=== PATIENT | female | born 1970 | race Caucasian/White ===

== ENCOUNTER 2016-09-01 21:57 | Emergency (ER) | payer BC, OTHER ==
[2016-09-01 22:08] VITALS: RESP 18
--- NOTE | 2016-09-01 22:39 | ED ---
Female Urogenital HPI - General Chief complaint: Urogenital Stated complaint: Female Time Seen by Provider: 09/01/16 22:10 Source: patient, RN notes reviewed, old records reviewed Mode of arrival: ambulatory Limitations: no limitations - History of Present Illness Initial comments: Patient is a 46-year-old female with chief complaint of lower pelvic pain for the past 4 days. Patient reports that urinary tract infection. She reports that she called her primary care provider today because she is continuing to have some pelvic pain and discomfort with urination. She states that when they called the or primary care provider they stated that she does not have a tree urinary tract infection as the culture did not grow any bacteria. Patient states that she is concerned that her IUD may be out of place causing her the pain and pressure. She states that she feels as if she needs to crunch up in a ball in order to be comfortable. She denies any fever or chills or back pain. She denies any specific abdominal pain. She states the lower pelvic pressure and dysuria. She reports that she did have some relief with the Pyridium.Patient denies any recent fever, chills, shortness of breath, chest pain, back pain, abdominal pain, nausea vomiting, numbness or tingling, constipation or diarrhea, headaches or visual changes, or any other current symptoms - Related Data Home Medications Medication Instructions Recorded Confirmed DULoxetine HCL [Cymbalta] 60 mg PO HS 09/01/16 09/01/16 Phenazopyridine [Pyridium] 200 mg PO TID 09/01/16 09/01/16 Sulfamethox-Tmp 800-160Mg [Bactrim 1 tab PO Q12HR 09/01/16 09/01/16 DS 800-160 mg] Previous Rx's Medication Instructions Recorded Acetaminophen-Codeine 300-30mg 1 tab PO Q8H PRN #10 tablet 09/02/16 [Tylenol #3] Allergies Allergy/AdvReac Type Severity Reaction Status Date / Time No Known Allergies Allergy Verified 09/01/16 22:41 Review of Systems ROS Statement: Those systems with pertinent positive or pertinent negative responses have been documented in the HPI. ROS Other: All systems not noted in ROS Statement are negative. Past Medical History Past Medical History: No Reported History History of Any Multi-Drug Resistant Organisms: None Reported Past Surgical History: Section Past Psychological History: No Psychological Hx Reported Smoking Status: Never smoker Past Alcohol Use History: None Reported Past Drug Use History: None Reported General Exam Limitations: no limitations General appearance: alert, in no apparent distress Head exam: Present: atraumatic, normocephalic, normal inspection Eye exam: Present: normal appearance, PERRL, EOMI. Absent: scleral icterus, conjunctival injection, periorbital swelling ENT exam: Present: normal exam, normal oropharynx, mucous membranes moist Neck exam: Present: normal inspection. Absent: tenderness, meningismus, lymphadenopathy Respiratory exam: Present: normal lung sounds bilaterally. Absent: respiratory distress, wheezes, rales, rhonchi, stridor Cardiovascular Exam: Present: regular rate, normal rhythm, normal heart sounds. Absent: systolic murmur, diastolic murmur, rubs, gallop, clicks GI/Abdominal exam: Present: soft, tenderness (Mild suprapubic tenderness.), normal bowel sounds. Absent: distended, guarding, rebound, rigid External exam: Present: normal external exam Speculum exam: Present: normal speculum exam, other (unable to visualize IUD or strings) By manual exam: Present: normal by manual exam. Absent: cervical motion tenderness, adnexal tenderness, adnexal mass Extremities exam: Present: normal inspection, full ROM, normal capillary refill. Absent: tenderness, pedal edema, joint swelling, calf tenderness Back exam: Present: normal inspection Neurological exam: Present: alert, oriented X3, CN II-XII intact Psychiatric exam: Present: normal affect, normal mood Skin exam: Present: warm, dry, intact, normal color. Absent: rash Course Vital Signs 09/01/16 09/02/16 22:06 00:41 Temperature 98.1 F 97.7 F Pulse Rate 100 88 Respiratory 18 18 Rate Blood Pressure 131/83 129/67 O2 Sat by Pulse 98 97 Oximetry Medical Decision Making - Medical Decision Making Pleasant 46-year-old female. Patient is reporting 4 days of lower pelvic pain. She is concerned her IUD may be in out of place. Patient urinalysis and pelvic exam completed. Urinalysis showed elevated nitrate, no other signs of infection. Culture obtained. IUD not visualized on pelvic exam. Transvaginal US shows IUD in lower uterine pelvis. Patient reports she is continuing to have the lower pelvic discomfort. Patient will be given a few tylenol 3, and advised to follow up with OBGYN Dr. Gabriel. Patient agrees with treatment plan and will comply. REturn parameters discussed. - Lab Data Lab Results 09/01/16 09/01/16 09/01/16 Range/Units 22:40 22:40 23:20 Urine Color Dark Brown Urine Appearance Clear (Clear) Urine pH 6.0 (5.0-8.0) Ur Specific [place] 1.017 (1.001-1.035) Urine Protein Negative (Negative) Urine Glucose (UA) Negative (Negative) Urine Ketones Negative (Negative) Urine Blood Negative (Negative) Urine Nitrite Positive H (Negative) Urine Bilirubin 1+ H (Negative) Urine Urobilinogen 2.0 (<2.0) mg/dL Ur Leukocyte Esterase Small H (Negative) Urine RBC 2 (0-5) /hpf Urine WBC 4 (0-5) /hpf Ur Squamous Epith Cells <1 (0-4) /hpf Hyaline Casts 1 (0-2) /lpf Urine Mucus Rare H (None) /hpf Urine HCG, Qual Not Detected (Not Detectd) Trichomonas Ag (Rapid) Negative (Negative) - Radiology Data Radiology results: report reviewed IUD within the lower uterine segment. 0.4 cm shadowing calcification in the right adnexal region with hypoechoic tubular structure possibly resenting a ureteral stone. Correlate with symptoms and urinalysis. Clinically indicated CT renal stone protocol may be helpful for further evaluation. Nonvisualized ovaries. Disposition Clinical Impression: Pelvic pain Disposition: HOME SELF-CARE Condition: Good Instructions: Pelvic Pain in Women (ED) Additional Instructions: Patient is asked to follow-up with [facility]. IUD is in place could be causing some mild discomfort. Discussed possibility of chronic bladder pain. Return to the emergency department if any alarming signs or symptoms occur. Prescriptions: Acetaminophen-Codeine 300-30mg [Tylenol #3] 1 tab PO Q8H PRN #10 tablet PRN Reason: Pain Referrals: Dimple Shay DO [Primary Care Provider] - 1-2 days Claudia De La Vega MD [STAFF PHYSICIAN] - 1-2 days Time of Disposition: 00:19
[2016-09-01 22:51] LABS: Appearance,Urine Clear (Clear); Bilirubin,Urine 1+ (Negative); Glucose,Urine (UA) Negative (Negative); Ketones,Urine Negative (Negative); Leukocyte Esterase,Urine Small (Negative); Mucus,Urine Rare /hpf; Nitrite,Urine Positive (Negative); Particle Count 2953; Protein,Urine Negative (Negative); RBC,Urine 2 /hpf (0-5); Specific Gravity,Urine 1.017 (1.001-1.035); Squamous Epithelial Cell,Urine <1 /hpf (0-4); UA Billing (MACRO vs. MICRO) MICRO; WBC,Urine 4 /hpf (0-5)
--- NOTE | 2016-09-02 00:09 | US ---
EXAM: US PELVIC/ENDOVAG INDICATION: 46-year-old female with pelvic pressure and discomfort over the past 5 days. TECHNIQUE: Real-time sonographic evaluation of the pelvis is performed in transverse and longitudinal projections using endovaginal technique. COMPARISON: 01/06/2015. FINDINGS: The uterus is normal in size and position, it measures 8.0 x 3. 4 x 4.0 centimeters. An IUD is present within the lower uterine segment. The endometrium is normal in thickness measuring 0.4 cm. In the right adnexal region, there is a 0.4 cm shadowing calcification present within a hypoechoic tubular structure possibly representing a ureteral stone. The ovaries are not visualized. No complex adnexal mass lesions are otherwise seen. No free fluid is present. IMPRESSION: 1. IUD within the lower uterine segment. 2. 0.4 cm shadowing calcification present in the right adnexal region within a hypoechoic tubular structure, possibly representing a ureteral stone. Correlate with symptoms and urinalysis. If clinically indicated, CT renal stone protocol may be helpful for further evaluation. 3. Nonvisualized ovaries.
[2016-09-02] MEDS ORDERED: ACET/COD 300 MG/30 MG STARTER PACK 6 TAB BTL PO STA (00:27)
[2016-09-02 00:42] VITALS: BP 129/67; PULSE 88; TEMP 97.7
== END 2016-09-02 00:42 | disposition home or self-care (01) ==
LOC: EC 21:57
DX: R10.2 Pelvic and perineal pain (principal); Z79.899 Other long term (current) drug therapy
CPT/HCPCS: 76830; 81001; 81025; 87070; 87086; 87205; 87491; 87591; 87808; 99284

== ENCOUNTER → 2017-03-28 | Outpatient (CLI) | payer BC ==
--- NOTE | 2017-03-30 11:00 | MM ---
Reason for exam: screening (asymptomatic). Last mammogram was performed 2 years and 8 months ago. History: Patient had first child at age 39. Family history of breast cancer in grandmother at age 45. Physical Findings: A clinical breast exam by your physician is recommended on an annual basis and results should be correlated with mammographic findings. MG Screening Mammo w CAD Bilateral CC and MLO view(s) were taken. Prior study comparison: July 20, 2014, bilateral MG screening mammo w CAD. March 2009, mammogram, performed at [facility]. There are scattered fibroglandular densities. No significant changes when compared with prior studies. ASSESSMENT: Negative, BI-RAD 1 RECOMMENDATION: Routine screening mammogram of both breasts in 1 year.
== END | disposition home or self-care (01) ==
LOC: RADMAMWWP 09:14
PROVIDERS: ATTEND Obstetrics & Gynecology
DX: Z12.31 Encounter for screening mammogram for malignant neoplasm of breast (principal); Z80.3 Family history of malignant neoplasm of breast

== ENCOUNTER → 2018-12-25 | Outpatient (CLI) | payer OTHER ==
--- NOTE | 2018-12-26 13:52 | MM ---
Reason for exam: screening (asymptomatic). Last mammogram was performed 1 year and 9 months ago. History: Patient had first child at age 39. Family history of breast cancer in grandmother at age 45. Physical Findings: A clinical breast exam by your physician is recommended on an annual basis and results should be correlated with mammographic findings. MG 3D Screening Mammo W/Cad Bilateral CC and MLO view(s) were taken. Prior study comparison: March 28, 2017, bilateral MG screening mammo w CAD. July 20, 2014, bilateral MG screening mammo w CAD. There are scattered fibroglandular densities. Benign appearing bilateral calcifications. No significant changes when compared with prior studies. ASSESSMENT: Benign, BI-RAD 2 RECOMMENDATION: Routine screening mammogram of both breasts in 1 year.
== END | disposition home or self-care (01) ==
LOC: RADMAMWWP 07:28
PROVIDERS: ATTEND Family Medicine
DX: Z12.31 Encounter for screening mammogram for malignant neoplasm of breast (principal)
CPT/HCPCS: 77063; 77067

== ENCOUNTER → 2020-01-13 | Outpatient (CLI) | payer OTHER ==
--- NOTE | 2020-01-14 09:29 | MM ---
Reason for exam: screening (asymptomatic). Last mammogram was performed 1 year and 1 month ago. History: Patient had first child at age 39. Family history of breast cancer in grandmother at age 45. Physical Findings: A clinical breast exam by your physician is recommended on an annual basis and results should be correlated with mammographic findings. MG 3D Screening Mammo W/Cad Bilateral CC and MLO view(s) were taken. Prior study comparison: December 25, 2018, bilateral MG 3d screening mammo w/cad. March 28, 2017, bilateral MG screening mammo w CAD. There are scattered fibroglandular densities. There is no discrete abnormality. No significant changes when compared with prior studies. ASSESSMENT: Negative, BI-RAD 1 RECOMMENDATION: Routine screening mammogram of both breasts in 1 year.
== END | disposition home or self-care (01) ==
LOC: RADMAMWWP 07:46
PROVIDERS: ATTEND Family Medicine
DX: Z12.31 Encounter for screening mammogram for malignant neoplasm of breast (principal)
CPT/HCPCS: 77063; 77067

== ENCOUNTER → 2020-03-16 | Outpatient (CLI) | payer OTHER ==
[2020-03-16 13:39] VITALS: BP 138/87; PULSE 70; TEMP 98.4; BMI 39.1
--- NOTE | 2020-03-16 14:24 | P.HPBAR ---
Bariatric H&P - History & Physicial H&P Date: 03/16/20 History & Physicial: Visit/CC: initial clinic visit Patient initial contact: Initial weight: Initial weight in pounds: Height: 5 ft 3 in Initial BMI: Last weight: Current weight: 100.244 kg Current weight in pounds: 221.00 Current BMI: 39.1 [place] body weight (based on NIH guidelines): 52.163 kg Excess body weight loss: The patient is a 49 year-old F who presents for Bariatric Assessment. Patient here today with complaints of morbid obesity. She states she has tried a variety of different weight loss methods over the years. She had really good success with [employer] approximately 6 years ago however one starting that program recently she gained weight. Denies tobacco use. BMI 39. Patient with medical history significant for obstructive sleep apnea, hypercholesterolemia, depression, PCO S, prediabetes. No dysphagia or history of DVT. Surgical history includes pilonidal cyst colonoscopy. Patient is required to have a 6 month supervised weight loss program. States she does struggle with di arrhea after her protein shakes. Review of Systems The patient denies any acute changes in vision or hearing, no dysphagia or odynophagia, no chest pain or shortness of breath, no dysuria or hematuria, no headache, no runny nose, no rectal bleeding or melena, no unexplained weight loss Past Medical History Past Medical History: No Reported History History of Any Multi-Drug Resistant Organisms: None Reported Past Surgical History: Section Past Anesthesia/Blood Transfusion Reactions: No Reported Reaction Past Psychological History: No Psychological Hx Reported Smoking Status: Never smoker Past Alcohol Use History: None Reported Past Drug Use History: None Reported Surgical - Exam Vital Signs Temp Pulse BP 98.4 F 70 138/87 03/16/20 13:30 03/16/20 13:30 03/16/20 13:30 Physical exam: General: Well-developed, well-nourished HEENT: Normocephalic, sclerae nonicteric Abdomen: Nontender, nondistended Extremities: No edema Neuro: Alert and oriented Bariatric Assessment & Plan (1) Morbid obesity Narrative/Plan: 49-year-old female with chronic history of obesity. Patient with comorbidities as well. Options reviewed again with the patient. She was seen at our seminar 1-2 months ago. She is interested in sleeve gastrectomy. Surgical options and their risks and benefits again discussed in detail. Will plan EGD 3 months. Follow-up in the office following that. Status: Acute Bariatric Checklist Checklist: Plan: Checklist: EGD: 1. Hiatal hernia: 2. H. Pylori: HgbA1c: Vitamin D: Smoking: Never smoker Primary care physician referral: Psychiatry clearance: Cardiology clearance: Sleep study: Diet journal: VTE risk score: VTE risk level: Rehab needs at discharge:
== END | disposition home or self-care (01) ==
LOC: BARWHC3 12:50
PROVIDERS: ATTEND Surgery
DX: E66.01 Morbid (severe) obesity due to excess calories (principal); Z68.39 Body mass index [BMI] 39.0-39.9, adult
CPT/HCPCS: 99211

== ENCOUNTER 2020-11-10 20:50 | Emergency (ER) | payer OTHER ==
[2020-11-10 20:58] VITALS: TEMP 97.9
[2020-11-10] MEDS ORDERED: diphenhydrAMINE 50 MG/ML 1 ML VIAL IVP STA (22:24)
[2020-11-10] MEDS ORDERED: ONDANSETRON 4 MG/2 ML VIAL IVP STA (22:24)
[2020-11-10] MEDS ORDERED: PROCHLORPERAZINE INJ 10 MG/2 ML VIAL IVP STA (22:24)
[2020-11-10] MEDS ORDERED: SODIUM CHLORIDE 0.9% 1,000 ML IV STA ×2 (22:24)
--- NOTE | 2020-11-10 22:25 | ED ---
Headache HPI - General Chief Complaint: Headache Stated Complaint: Head pain,nausea,weakness Time Seen by Provider: 11/10/20 21:17 Source: RN notes reviewed, old records reviewed Mode of arrival: wheelchair Limitations: no limitations - History of Present Illness Initial Comments: Is a 42-year-old female DF for evaluation patient Dese for evaluation of right eye pain. No vision changes. His pressure. With headache migraine headache and history of migraines. No nausea vomiting diarrhea or fevers. Patient states she feels like she does 20 2. with the onset of this headache. She didn't shower symptoms mildly improved but have not resolved headache is persistent headache is pressure behind her right eye currently. Which is little different than her most, migraines MD Complaint: headache, "migraine" -: days(s) Onset Description: sudden Location: right, retro-orbital Severity scale (1-10): 4 Quality: pulsatile, intermittent Consistency: constant Improves With: nothing Worsens With: none Associated Symptoms: photophobia, sensitivity to sound, other (No vision changes) Treatments Prior to Arrival: none - Related Data Home Medications Medication Instructions Recorded Confirmed DULoxetine HCL [Cymbalta] 60 mg PO HS 09/01/16 09/01/16 Naproxen [Naprosyn] 500 mg PO BID 03/16/20 03/16/20 Vitamin B Complex 1 cap PO DAILY 03/16/20 03/16/20 Previous Rx's Medication Instructions Recorded Amoxic-Pot Clav 875-125Mg 1 tab PO Q12HR #20 tablet 11/10/20 [Augmentin 875-125] Allergies Allergy/AdvReac Type Severity Reaction Status Date / Time No Known Allergies Allergy Verified 11/10/20 20:58 Review of Systems ROS Statement: Those systems with pertinent positive or pertinent negative responses have been documented in the HPI. ROS Other: All systems not noted in ROS Statement are negative. Past Medical History Past Medical History: Sleep Apnea/CPAP/BIPAP Additional Past Medical History / Comment(s): PCOS History of Any Multi-Drug Resistant Organisms: None Reported Past Surgical History: Section Past Anesthesia/Blood Transfusion Reactions: No Reported Reaction Past Psychological History: Depression Smoking Status: Never smoker Past Alcohol Use History: None Reported Past Drug Use History: None Reported General Exam Limitations: no limitations General appearance: alert, in no apparent distress Head exam: Present: atraumatic, normocephalic, normal inspection Eye exam: Present: normal appearance, PERRL, EOMI. Absent: scleral icterus, conjunctival injection, periorbital swelling ENT exam: Present: normal exam, mucous membranes moist Neck exam: Present: normal inspection. Absent: tenderness, meningismus, lymphadenopathy Respiratory exam: Present: normal lung sounds bilaterally. Absent: respiratory distress, wheezes, rales, rhonchi, stridor Cardiovascular Exam: Present: regular rate, normal rhythm, normal heart sounds. Absent: systolic murmur, diastolic murmur, rubs, gallop, clicks GI/Abdominal exam: Present: soft, normal bowel sounds. Absent: distended, tenderness, guarding, rebound, rigid Extremities exam: Present: normal inspection, full ROM, normal capillary refill. Absent: tenderness, pedal edema, joint swelling, calf tenderness Back exam: Present: normal inspection Neurological exam: Present: alert, oriented X3, CN II-XII intact Psychiatric exam: Present: normal affect, normal mood Skin exam: Present: warm, dry, intact, normal color. Absent: rash Course Vital Signs 11/10/20 11/10/20 20:55 22:48 Temperature 97.9 F Pulse Rate 83 73 Respiratory 20 18 Rate Blood Pressure 142/83 117/74 O2 Sat by Pulse 99 97 Oximetry - Reevaluation(s) Reevaluation #1: 11/10/20 23:52 Medical records reviewed Reevaluation #2: 11/10/20 23:52 Symptoms improved here in the Reevaluation #3: 11/10/20 23:52 Patient informed results and questions answered Feels good for discharge Medical Decision Making - Medical Decision Making 42 female DF for evaluation patient Dese for evaluation regards to back pain migraine headache. Still symptoms are currently resolved. 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 persistent eye pain or any upcoming vision changes she has no current vi melanie loss or changes - Lab Data Result diagrams: 11/10/20 22:35 11/10/20 22:35 Lab Results 11/10/20 11/10/20 11/10/20 Range/Units 22:35 22:35 22:35 WBC 6.9 (3.8-10.6) k/uL RBC 4.95 (3.80-5.40) m/uL Hgb 15.8 (11.4-16.0) gm/dL Hct 46.0 (34.0-46.0) % MCV 93.0 (80.0-100.0) fL MCH 31.9 (25.0-35.0) pg MCHC 34.3 (31.0-37.0) g/dL RDW 12.4 (11.5-15.5) % Plt Count 222 (150-450) k/uL MPV 6.6 Neutrophils % 70 % Lymphocytes % 23 % Monocytes % 4 % Eosinophils % 2 % Basophils % 0 % Neutrophils # 4.8 (1.3-7.7) k/uL Lymphocytes # 1.6 (1.0-4.8) k/uL Monocytes # 0.3 (0-1.0) k/uL Eosinophils # 0.1 (0-0.7) k/uL Basophils # 0.0 (0-0.2) k/uL PT 10.1 (9.0-12.0) sec INR 0.9 (<1.2) APTT 22.1 (22.0-30.0) sec Sodium 139 (137-145) mmol/L Potassium 4.0 (3.5-5.1) mmol/L Chloride 101 (98-107) mmol/L Carbon Dioxide 27 (22-30) mmol/L Anion Gap 11 mmol/L BUN 19 H (7-17) mg/dL Creatinine 0.88 (0.52-1.04) mg/dL Est GFR (CKD-EPI)AfAm >90 (>60 ml/min/1.73 sqM) Est GFR (CKD-EPI)NonAf 78 (>60 ml/min/1.73 sqM) Glucose 124 H (74-99) mg/dL Plasma Lactic Acid Brenton (0.7-2.0) mmol/L Calcium 9.6 (8.4-10.2) mg/dL Phosphorus 2.8 (2.5-4.5) mg/dL Magnesium 1.8 (1.6-2.3) mg/dL Total Bilirubin 0.5 (0.2-1.3) mg/dL AST 60 H (14-36) U/L ALT 106 H (4-34) U/L Alkaline Phosphatase 83 (38-126) U/L Creatine Kinase 171 H (30-135) U/L Troponin I (0.000-0.034) ng/mL C-Reactive Protein 1.2 H (<1.0) mg/dL NT-Pro-B Natriuret Pep pg/mL Total Protein 7.6 (6.3-8.2) g/dL Albumin 4.8 (3.5-5.0) g/dL 11/10/20 11/10/20 11/10/20 Range/Units 22:35 22:35 22:35 WBC (3.8-10.6) k/uL RBC (3.80-5.40) m/uL Hgb (11.4-16.0) gm/dL Hct (34.0-46.0) % MCV (80.0-100.0) fL MCH (25.0-35.0) pg MCHC (31.0-37.0) g/dL RDW (11.5-15.5) % Plt Count (150-450) k/uL MPV Neutrophils % % Lymphocytes % % Monocytes % % Eosinophils % % Basophils % % Neutrophils # (1.3-7.7) k/uL Lymphocytes # (1.0-4.8) k/uL Monocytes # (0-1.0) k/uL Eosinophils # (0-0.7) k/uL Basophils # (0-0.2) k/uL PT (9.0-12.0) sec INR (<1.2) APTT (22.0-30.0) sec Sodium (137-145) mmol/L Potassium (3.5-5.1) mmol/L Chloride (98-107) mmol/L Carbon Dioxide (22-30) mmol/L Anion Gap mmol/L BUN (7-17) mg/dL Creatinine (0.52-1.04) mg/dL Est GFR (CKD-EPI)AfAm (>60 ml/min/1.73 sqM) Est GFR (CKD-EPI)NonAf (>60 ml/min/1.73 sqM) Glucose (74-99) mg/dL Plasma Lactic Acid Brenton 1.4 (0.7-2.0) mmol/L Calcium (8.4-10.2) mg/dL Phosphorus (2.5-4.5) mg/dL Magnesium (1.6-2.3) mg/dL Total Bilirubin (0.2-1.3) mg/dL AST (14-36) U/L ALT (4-34) U/L Alkaline Phosphatase (38-126) U/L Creatine Kinase (30-135) U/L Troponin I <0.012 (0.000-0.034) ng/mL C-Reactive Protein (<1.0) mg/dL NT-Pro-B Natriuret Pep 35 pg/mL Total Protein (6.3-8.2) g/dL Albumin (3.5-5.0) g/dL - EKG Data -: EKG Interpreted by Me (EKG is sinus rhythm 67. 187 QRS 84 QTc 435) - Radiology Data Radiology results: report reviewed (CTA see brain negative for acute disease), image reviewed Disposition Clinical Impression: Migraine, Pain, eye, right Disposition: HOME SELF-CARE Condition: Good Instructions (If sedation given, give patient instructions): Acute Headache (ED), Eye Pain (ED) Prescriptions: Amoxic-Pot Clav 875-125Mg [Augmentin 875-125] 1 tab PO Q12HR #20 tablet Is patient prescribed a controlled substance at d/c from ED?: No Referrals: Eri Raza DO [Primary Care Provider] - 1-2 days
[2020-11-10 22:52] LABS: Basophils % (A) 0 %; Eosinophils # (A) 0.1 k/uL (0-0.7); Eosinophils % (A) 2 %; HGB 15.8 gm/dL (11.4-16.0); Lymphocytes # (A) 1.6 k/uL (1.0-4.8); Lymphocytes % (A) 23 %; MCH 31.9 pg (25.0-35.0); MCHC 34.3 g/dL (31.0-37.0); Mean Platelet Volume 6.6; Monocytes # (A) 0.3 k/uL (0-1.0); Monocytes % (A) 4 %; Neutrophils # (A) 4.8 k/uL (1.3-7.7); Neutrophils % (A) 70 %; Platelet Count 222 k/uL (150-450); RBC 4.95 m/uL (3.80-5.40); RDW 12.4 % (11.5-15.5); WBC 6.9 k/uL (3.8-10.6)
[2020-11-10 23:00] LABS: INR 0.9 (<1.2); Prothrombin Time 10.1 sec (9.0-12.0)
[2020-11-10 23:09] LABS: Partial Thromboplastin Time 22.1 sec (22.0-30.0)
--- NOTE | 2020-11-10 23:27 | CT ---
EXAMINATION TYPE: CT brain wo con DATE OF EXAM: 11/10/2020 COMPARISON: None HISTORY: right eye pain CT DLP: 1327.4 mGycm Automated exposure control for dose reduction was used. Ventricles and sulci appear normal. There is no mass effect nor midline shift. There is no sign of in tracranial hemorrhage. There is no evidence of cerebral edema. The calvarium is intact. Skull base is intact. There is normal aeration of the mastoid sinuses. There is no evidence of orbital mass. IMPRESSION: Negative unenhanced head CT scan.
--- NOTE | 2020-11-10 23:31 | CT ---
EXAMINATION TYPE: CT iac wo con DATE OF EXAM: 11/10/2020 COMPARISON: None HISTORY: right eye pain CT DLP: 1327.4 mGycm Automated exposure control for dose reduction was used. Images obtained from the skull base to the top of the orbits without contrast. Sphenoid bone appears normal. There is fairly normal aeration of the mastoid air cells. There is smal l fluid levels in the right mastoid sinus. The external auditory canals appear intact. There is minim al debris in both external auditory canals. Temporomandibular joints are intact. There is normal aeration of the epitympanic recess bilaterally. The cochlea and semicircular canals appear intact. I see no focal bone destruction. The internal zelda ry canals appear normal. There is no evidence of a posterior fossa mass. There is no evidence of retro-orbital mass. The globes are symmetric. Extraocular muscles are symmetr ic. There is no evidence of a sellar mass. Pituitary stalk appears normal. There is fairly normal aer ation of the paranasal sinuses. IMPRESSION: There is evidence for some very minimal right-sided mastoiditis. Otherwise negative CT scan of the te mporal bones.
[2020-11-10] MEDS ORDERED: KETOROLAC 15 MG/ML 1 ML VIAL IVP STA (23:32)
[2020-11-10 23:34] LABS: ALT 106 U/L (4-34); AST 60 U/L (14-36); African American GFR (CKD) >90 (>60 ml/min/1.73 sqM); Albumin 4.8 g/dL (3.5-5.0); Alkaline Phosphatase 83 U/L (38-126); Anion Gap 11 mmol/L; Blood Urea Nitrogen 19 mg/dL (7-17); C Reactive Protein 1.2 mg/dL (<1.0); Calcium 9.6 mg/dL (8.4-10.2); Carbon Dioxide 27 mmol/L (22-30); Chloride 101 mmol/L (98-107); Creatine Kinase 171 U/L (30-135); Glucose 124 mg/dL (74-99); Magnesium 1.8 mg/dL (1.6-2.3); Non-African American GFR(CKD) 78 (>60 ml/min/1.73 sqM); Phosphorus 2.8 mg/dL (2.5-4.5); Sodium 139 mmol/L (137-145); Total Bilirubin 0.5 mg/dL (0.2-1.3); Total Protein 7.6 g/dL (6.3-8.2)
[2020-11-10] MEDS ORDERED: AMOXIC-POT CLAV 875MG STARTER PACK 2 TAB BTL PO STA (23:51)
[2020-11-10] MEDS ORDERED: AMOXIC-POT CLAV 875-125MG 1 EACH TAB PO STA (23:51)
[2020-11-11 00:46] VITALS: BP 121/82; PULSE 75; RESP 16
== END 2020-11-11 00:15 | disposition home or self-care (01) ==
LOC: EC 20:50
DX: G43.909 Migraine, unspecified, not intractable, without status migrainosus (principal); R53.1 Weakness; G47.30 Sleep apnea, unspecified; F32.9 Major depressive disorder, single episode, unspecified; Z79.1 Long term (current) use of non-steroidal anti-inflammatories (NSAID)
CPT/HCPCS: 36415; 93005; 83880; 80053; 82550; 83605; 83735; 84100; 84484; 85025; 85610; 85730; 86140; 70450; 70480; 99285; 96374; 96375; 96361 ×2; J1200; J0780

== ENCOUNTER → 2022-01-31 | Outpatient (CLI) | payer OTHER ==
--- NOTE | 2022-02-06 19:45 | MM ---
Reason for Exam: Screening (asymptomatic). Last mammogram was performed 2 year(s) and 1 month(s) ago. Patient History: Menarche at age 14. First Full-Term at age 39. Late child-bearing (after 30). Postmenopausal. Patient used Hormonal Contraceptives for 10 years. Paternal grandmother had breast cancer, age 45. Risk Values: Ragini 5 year model risk: 1.3%. NCI Lifetime model risk: 12.3%. Prior Study Comparison: 03/28/2017 Bilateral Screening Mammogram, [facility]. 12/25/2018 Bilateral Screening Mammogram, [facility]. 01/13/2020 Bilateral Screening Mammogram, [facility]. Tissue Density: There are scattered fibroglandular densities. Findings: Analyzed By CAD. There is no suspicious group of microcalcifications or new suspicious mass in either breast. Overall Assessment: Negative, BI-RAD 1 Management: Screening Mammogram of both breasts in 1 year. 1. Patient should continue monthly self breast exams. 2. A clinical breast exam by your physician is recommended on an annual basis. 3. This exam should not preclude additional follow-up of suspicious palpable abnormalities. Electronically signed and approved by: Samira Coleman M.D. Radiologist
== END | disposition home or self-care (01) ==
LOC: RADMAMWWP 08:18
PROVIDERS: ATTEND Family Medicine
DX: Z12.31 Encounter for screening mammogram for malignant neoplasm of breast (principal); Z78.0 Asymptomatic menopausal state; Z80.3 Family history of malignant neoplasm of breast
CPT/HCPCS: 77063; 77067

== ENCOUNTER → 2023-04-03 | Outpatient (CLI) | payer OTHER ==
--- NOTE | 2023-04-05 08:39 | MM ---
Reason for Exam: Screening (asymptomatic). Last mammogram was performed 1 year(s) and 2 month(s) ago. Patient History: Menarche at age 14. First Full-Term at age 39. Late child-bearing (after 32). Postmenopausal. Patient used Hormonal Contraceptives for 10 years. Paternal grandmother had breast cancer, age 45. Risk Values: Ragini 5 year model risk: 1.3%. NCI Lifetime model risk: 12.1%. Prior Study Comparison: 12/25/2018 Bilateral Screening Mammogram, [facility]. 01/13/2020 Bilateral Screening Mammogram, [facility]. 01/31/2022 Bilateral MG 3D screening mammo w/cad, [facility]. Tissue Density: There are scattered fibroglandular densities. Findings: Analyzed By CAD. Appears symmetrical and stable. No significant interval change is evident. No suspicious groups of microcalcifications, spiculated or lobular masses, architectural distortion or other secondary signs of malignancy are mammographically apparent. Overall Assessment: Benign, BI-RAD 2 Management: Screening Mammogram of both breasts in 1 year. A negative mammogram report should not preclude additional follow up of suspicious palpable abnormalities. Patient should continue monthly self breast exam. A clinical breast exam by your physician is recommended on an annual basis and results should be correlated with mammographic findings. Electronically signed and approved by: Juan Diego Blood D.O. Radiologis
== END | disposition home or self-care (01) ==
LOC: RADMAMWWP 08:48
PROVIDERS: ATTEND Family Medicine
DX: Z12.31 Encounter for screening mammogram for malignant neoplasm of breast (principal); Z78.0 Asymptomatic menopausal state; Z80.3 Family history of malignant neoplasm of breast
CPT/HCPCS: 77063; 77067